=== PATIENT | male | born 1985 | race Caucasian/White ===

== ENCOUNTER 2020-03-11 16:19 | Emergency (ER) | payer MEDICAID ==
--- NOTE | 2020-03-11 16:34 | ED Physician Documentation ---
PD HPI FOCAL NEURO - Stated complaint Stated Complaint: RT SIDED NUMBNESS - Chief complaint Chief Complaint: Neuro - History obtained from History obtained from: Patient, Family (mom), Other (LONNIE Gregg called [employer]) - Additional information Additional information: 34yo M with history of migraines presents with 4 days, started with numbness of the right side of the tongue and since yesterday has had burning eyeballs and weakness of the right face. He was seen at an urgent care. There was a concern that he had some deficit in the upper and lower extremity on the right and therefore was sent here for further evaluation and treatment for what otherwise looks like a Patterson's palsy. Review of Systems Ten Systems: 10 systems reviewed and negative Constitutional: denies: Fever, Chills Nose: denies: Rhinorrhea / runny nose Throat: denies: Sore throat Respiratory: denies: Dyspnea, Cough GI: denies: Nausea, Vomiting PD PAST MEDICAL HISTORY - Present Medications Home Medications: Ambulatory Orders Medication Instructions Recorded Confirmed Dextroamphetamine/Amphetamine 10 mg 03/11/20 [Adderall 10 mg Tablet] Escitalopram [Lexapro] 20 mg 03/11/20 Valacyclovir HCl [Valacyclovir] 1,000 mg PO TID 10 Days #30 tablet 03/11/20 predniSONE [Deltasone] 20 mg PO [id number] #21 tab 03/11/20 - Allergies Allergies/Adverse Reactions: Allergies Allergy/AdvReac Type Severity Reaction Status Date / Time Sulfa (Sulfonamide Allergy Unknown Verified 03/11/20 16:28 Antibiotics) PD ED PE NORMAL - Vitals Vital signs reviewed: Yes - General General: Alert and oriented X 3, No acute distress - Neck Neck: Supple, no meningeal sign, No bony TTP - Derm Derm: Normal color, Warm and dry - Neuro Neuro: Alert and oriented X 3, Normal speech - Psych Psych: Normal mood, Normal affect NIHSS - Time Time: 16:33 - Level of Consciousness Level of consciousness: (0) Alert, Keenly responsive LOC Questions: (0) Answers both Q's correct LOC Commands: (0) Performs both correctly - Gaze Best Gaze: (0) Normal - Visual Visual: (0) No loss - Facial Palsy Facial Palsy: (2) Partial paralysis (Fairly significant paralysis of the right face which does not spare the forehead.) - Motor Arms (both separate) Motor Arm (right): (0) No drift Motor Arm (left): (0) No drift - Motor Legs (both separate) Motor Leg (right): (0) No drift Motor Leg (left): (0) No drift - Limb Ataxia Limb Ataxia: (0) Absent - Sensory Sensory: (0) Normal - Best Language Best Language: (0) No aphasia - Dysarthria Dysarthria: (0) Normal - Extinction and Inattention (formally neg Extinction and inattention: (0) No abnormality - Total Score/Results Total Score/Result: 2 Results - Vitals Vitals: Vital Signs - 24 hr 03/11/20 03/11/20 16:23 18:29 Temperature 37.4 C Heart Rate 70 72 Respiratory 18 20 Rate Blood Pressure 139/81 H 127/80 O2 Saturation 100 99 Oxygen O2 Source Room air - EKG (time done) 1644 Rate: Rate (enter#) (74) Rhythm: NSR [place]: Normal Intervals: Normal NC QRS: Normal Ischemia: Normal ST segments - Labs Labs: Laboratory Tests 03/11/20 03/11/20 16:45 16:45 WBC 6.7 RBC 4.78 Hgb 13.2 L Hct 40.8 L MCV 85.4 MCH 27.6 MCHC 32.4 RDW 12.7 Plt Count 251 MPV 10.2 Neut # (Auto) 4.5 Lymph # (Auto) 1.6 [place] # (Auto) 0.5 Eos # (Auto) 0.1 Baso # (Auto) 0.0 Absolute Nucleated RBC 0.00 Nucleated RBC % 0.0 Sodium 139 Potassium 3.8 Chloride 100 L Carbon Dioxide 27 Anion Gap 12.0 BUN 10 Creatinine 0.8 Estimated GFR (MDRD) 112 Glucose 85 Calcium 9.1 - Rads (name of study) MRI Brain Radiology: EMP read contemporaneously (negative) PD MEDICAL DECISION MAKING - ED course ED course: 34 yo M Presents with a right facial palsy which on the surface looks like a Patterson's palsy, that said there is a concern for upper and lower extremity deficits and therefore was sent here for MRI. Departure - Departure Disposition: 01 Home, Self Care Clinical Impression: Stroke-like symptoms, Patterson's palsy Condition: Good Record reviewed to determine appropriate education?: Yes Instructions: ED [place] Palsy Prescriptions: predniSONE [Deltasone] 20 mg PO [id number] #21 tab Valacyclovir HCl [Valacyclovir] 1,000 mg PO TID 10 Days #30 tablet Comments: Prescriptions were sent electronically to [facility] in [place]. Call your doctor to arrange a follow-up appointment, make the next available appointment. In the interim, return anytime if worse or if new symptoms develop.
[2020-03-11 16:48] LABS: BASOPHILS % (AUTO) 0.3 %; EOSINOPHILS # (AUTO) 0.1 10^3/uL (0.0-0.7); EOSINOPHILS % (AUTO) 1.9 %; HGB - HEMOGLOBIN 13.2 g/dL (14.0-18.0); LYMPHOCYTES # (AUTO) 1.6 10^3/uL (1.5-3.5); LYMPHOCYTES % (AUTO) 23.1 %; MEAN CORPUSCULAR HEMOGLOBIN 27.6 pg (27.0-31.0); MEAN CORPUSCULAR HGB CONC 32.4 g/dL (32.0-36.0); MEAN CORPUSCULAR VOLUME 85.4 fL (80.0-94.0); MEAN PLATELET VOLUME 10.2 fL (7.4-11.4); MONOCYTES # (AUTO) 0.5 10^3/uL (0.0-1.0); MONOCYTES % (AUTO) 7.9 %; NEUTROPHILS # (AUTO) 4.5 10^3/uL (1.5-6.6); NEUTROPHILS % (AUTO) 66.5 %; PLT - PLATELET COUNT 251 10^3/uL (130-450); RED BLOOD COUNT 4.78 10^6/uL (4.70-6.10); RED CELL DISTRIBUTION WIDTH 12.7 % (12.0-15.0); WHITE BLOOD COUNT 6.7 x10^3/uL (4.8-10.8)
[2020-03-11 16:57] LABS: CALCIUM 9.1 mg/dL (8.5-10.3); CREATININE 0.8 mg/dL (0.6-1.2)
--- NOTE | 2020-03-11 18:51 | MRI Report ---
PROCEDURE: Brain W/O INDICATIONS: stroke like sx with R sided defecits. TECHNIQUE: Noncontrast axial T1 spin echo, axial T2 fast spin echo, sagittal and axial FLAIR, coronal T2 fast sp in echo, axial gradient echo, axial diffusion and ADC through the brain. COMPARISON: None. FINDINGS: Image quality: Excellent. CSF Spaces: Basal cisterns are patent. No extra-axial fluid collections. Ventricles are normal in size and shape. Brain: No intracranial masses or hemorrhage. [place]/white matter interface is normal. Brainstem appe ars normal. Diffusion-weighted images demonstrate no acute ischemic insult. No chronic ischemic ins ults. Normal intravascular flow voids are present. Skull and face: Calvarium has normal marrow signal. Orbits appear normal. Sinuses: Sinuses and mastoids are clear. IMPRESSION: 1. No acute intracranial disease process. 2. No areas of acute or chronic infarction. 3. No abnormal internal mass or mass effect. Reviewed by: Digna Khoury MD, PhD on 03/11/2020 6:50 PM PDT Approved by: Digna Khoury MD, PhD on 03/11/2020 6:50 PM PDT Station ID: [id number]
[2020-03-11] MEDS ORDERED: predniSONE 20 MG TABLET PO STA (18:58)
[2020-03-11] MEDS ORDERED: valACYclovir 500 MG TABLET PO STA (18:58)
[2020-03-11 19:23] VITALS: BP 110/70
== END 2020-03-11 19:22 | disposition home or self-care (01) ==
LOC: ED 16:19
DX: G51.0 Bell's palsy (principal); R29.898 Other symptoms and signs involving the musculoskeletal system; Z20.828 Contact with and (suspected) exposure to other viral communicable diseases
CPT/HCPCS: 36415; 70551; 80048; 85025; 87635; 93005; 99284; A9270; J7512